=== PATIENT | female | born 1995 | race American Indian/Alaskan Native ===

== ENCOUNTER 2020-08-29 15:34 | Emergency (ER) | payer OTHER ==
[2020-08-29 18:44] LABS: HCG Qualitative,Urine Positive (Negative)
[2020-08-29 18:51] LABS: Bacteria,Urine 1+ /HPF (Negative); Bilirubin,Urine NEG (Negative); Blood,Urine NEG (Negative); Color,Urine Yellow (Yellow); Protein,Urine <15 mg/dL mg/dL (Negative); Urobilinogen,Urine < 2.0 mg/dL (<2.0)
[2020-08-29] MEDS ORDERED: ACETAMINOPHEN 500 MG TAB PO ONE (21:24)
[2020-08-29] MEDS ORDERED: PROMETHAZINE 25 MG TAB PO ONE (21:24)
[2020-08-29 23:05] LABS: Basophils % (Auto) 0.3 % (0.0-1.8); Eosinophils # (Auto) 0.1 K/mm3 (0.0-0.4); Eosinophils % (Auto) 1.1 % (0.0-4.3); Hemoglobin 12.7 gm/dl (10.1-14.3); Lymphocytes # (Auto) 2.6 K/mm3 (1.2-5.4); Lymphocytes % (Auto) 35.4 % (13.4-35.0); Mean Corpuscular HGB Conc 33 % (30-34); Mean Corpuscular Volume 85 fl (79-97); Monocytes # (Auto) 0.8 K/mm3 (0.0-0.8); Platelet Count 211 K/mm3 (140-440); Red Blood Count 4.48 M/mm3 (3.65-5.03); Red Cell Distribution Width 14.3 % (13.2-15.2)
--- NOTE | 2020-08-29 23:12 | Ultrasound Report ---
ULTRASOUND OBSTETRIC REASON FOR EXAM: abd pain/ TECHNIQUE: Transabdominal and transvaginal ultrasound was performed to evaluate a first trimester pre gnancy. COMPARISON: None available. FINDINGS: FINDINGS: The pole, yolk sac, and gestational sac are normal in appearance. [place]-rump length: 3.7 mm. This corresponds with a gestational age of 6 weeks 0 days. heart rate: 133 bpm Perigestational hemorrhage: No evidence of perigestational hemorrhage on the provided images. MATERNAL FINDINGS: The uterus demonstrates otherwise unremarkable sonographic appearance.. The right ovary measures 4 x 1.9 x 2.1 cm. There is a 2.7 cm cystic structure in the right ovary, com patible with corpus luteum cyst. Left ovary is not visualized. Cul-de-sac: There is fluid in the cul-de-sac. IMPRESSION: Single viable intrauterine . Gestational age is 6 weeks 0 days by ultrasound. Recommend clin ical screening and ultrasound follow-up in the second trimester to screen for anomalies. Nonspecific fluid in the cul-de-sac, likely physiologic. Signer Name: Stephen Fraga MD Signed: 08/29/2020 11:08 PM Workstation Name: [id number]
[2020-08-29 23:21] LABS: Alanine Aminotransferase 21 units/L (7-56); Albumin 4.2 g/dL (3.9-5); Blood Urea Nitrogen 6 mg/dL (7-17); Calcium 9.5 mg/dL (8.4-10.2); Hemolysis Index 5
[2020-08-29 23:29] LABS: BUN/Creatinine Ratio 12
[2020-08-29 23:43] VITALS: BP 111/63
--- NOTE | 2020-08-29 23:45 | Emergency Department Report ---
ED Female HPI - General Chief complaint: Abdominal Pain Stated complaint: IN PAINS Source: patient Mode of arrival: Ambulatory Limitations: No Limitations - History of Present Illness Initial comments: Patient is a A0 25-year-old -[place] female with no past medical history and who is approximately 6 weeks gestation presents to the ED with complaint of acute onset persistent pelvic pain for the last 2 days, worse in the last 12 hours. Patient states that her LMP was July and that she had a positive home test 2 days ago. Patient states that the pain in her pelvic area got worse in the last 8 hours. Patient denies vaginal bleeding, vaginal discharge, dysuria, urinary frequency and urgency, low back pain, chest pain, shortness of breath, diarrhea, nausea and vomiting, fever and chills or headache. MD Complaint: pelvic pain (Suprapubic pressure) -: Sudden, days(s) (2) Location: suprapubic Radiation: non-radiating Severity: moderate Severity scale (0 -10): 6 Quality: cramping, sharp Consistency: intermittent Improves with: none Worsens with: none Are you Now?: Yes (Positive home test) Last Menstrual Period: 07/19/20 EDC: 04/25/21 Associated Symptoms: denies other symptoms, abdominal pain (Suprapubic pain). denies: vaginal discharge, vaginal bleeding, nausea/vomiting, fever/chills, headaches, loss of appetite, dysuria, hematuria, rash, seizure, shortness of breath, syncope, weakness - Related Data Sexually active: Yes : 2 Para: 1 A: 0 Previous Rx's Medication Instructions Recorded Last Taken Type Acetaminophen [Tylenol] 500 mg PO Q6HR PRN #30 tablet 08/29/20 Unknown Rx Promethazine [Phenergan] 25 mg PO Q6HR PRN #30 tab 08/29/20 Unknown Rx cephALEXin [Keflex] 500 mg PO Q8HR #30 cap 08/29/20 Unknown Rx Allergies Allergy/AdvReac Type Severity Reaction Status Date / Time No Known Allergies Allergy Unverified 08/29/20 17:13 ED Review of Systems ROS: Stated complaint: IN PAINS Other details as noted in HPI Constitutional: denies: chills, fever Eyes: denies: eye pain, eye discharge, vision change ENT: denies: ear pain, throat pain Respiratory: denies: cough, shortness of breath, wheezing Cardiovascular: denies: chest pain, palpitations Endocrine: no symptoms reported Gastrointestinal: abdominal pain (Suprapubic pain). denies: nausea, vomiting, diarrhea Genitourinary: denies: urgency, dysuria, discharge Musculoskeletal: denies: back pain, joint swelling, arthralgia Skin: denies: rash, lesions Neurological: denies: headache, weakness, paresthesias Psychiatric: denies: anxiety, depression Hematological/Lymphatic: denies: easy bleeding, easy bruising ED Past Medical Hx - Past Medical History Previous Medical History?: No - Surgical History Past Surgical History?: No - Social History Smoking Status: Never Smoker - Medications Home Medications: Home Medications Medication Instructions Recorded Confirmed Last Taken Type Acetaminophen [Tylenol] 500 mg PO Q6HR PRN #30 tablet 08/29/20 Unknown Rx Promethazine [Phenergan] 25 mg PO Q6HR PRN #30 tab 08/29/20 Unknown Rx cephALEXin [Keflex] 500 mg PO Q8HR #30 cap 08/29/20 Unknown Rx ED Physical Exam - General Limitations: No Limitations General appearance: alert, in no apparent distress - Head Head exam: Present: atraumatic, normocephalic, normal inspection - Eye Eye exam: Present: normal appearance, PERRL, EOMI Pupils: Present: normal accommodation - ENT ENT exam: Present: normal exam, normal orophraynx, mucous membranes moist, TM's normal bilaterally, normal external ear exam - Neck Neck exam: Present: normal inspection, full ROM - Respiratory Respiratory exam: Present: normal lung sounds bilaterally. Absent: respiratory distress, wheezes, rales, rhonchi, chest wall tenderness, accessory muscle use, decreased breath sounds, prolonged expiratory - Cardiovascular Cardiovascular Exam: Present: regular rate, normal rhythm, normal heart sounds. Absent: systolic murmur, diastolic murmur, rubs, gallop - GI/Abdominal GI/Abdominal exam: Present: soft, normal bowel sounds. Absent: tenderness, guarding, rebound, hyperactive bowel sounds, hypoactive bowel sounds, organomegaly - Extremities Exam Extremities exam: Present: normal inspection, full ROM, normal capillary refill - Back Exam Back exam: Present: normal inspection, full ROM. Absent: tenderness, CVA tenderness (R), CVA tenderness (L), muscle spasm, paraspinal tenderness - Neurological Exam Neurological exam: Present: alert, oriented X3, CN II-XII intact, normal gait, reflexes normal - Psychiatric Psychiatric exam: Present: normal affect, normal mood - Skin Skin exam: Present: warm, dry, intact, normal color. Absent: rash ED Course Vital Signs 08/29/20 17:12 Temperature 98.1 F Pulse Rate 81 Respiratory 18 Rate Blood Pressure 111/63 O2 Sat by Pulse 100 Oximetry ED Medical Decision Making - Lab Data Result diagrams: 08/29/20 22:25 08/29/20 22:25 - Radiology Data Radiology results: report reviewed, image reviewed [facility] [address] [place] [address] Ultrasound Report Signed Patient: SHIRA GARCIA MR#: [id number] 51 : 1995 Acct:[id number] Age/Sex: 25 / F ADM Date: 08/29/20 Loc: ED Attending Dr: Ordering Physician: ALTON NIETO Date of Service: 08/29/20 Procedure(s): US OB transvaginal Accession Number(s): [id number] cc: ALTON NIETO ULTRASOUND OBSTETRIC REASON FOR EXAM: abd pain/ TECHNIQUE: Transabdominal and transvaginal ultrasound was performed to evaluate a first trimester . COMPARISON: None available. FINDINGS: FINDINGS: The pole, yolk sac, and gestational sac are normal in appearance. [place]-rump length: 3.7 mm. This corresponds with a gestational age of 6 weeks 0 days. heart rate: 133 bpm Perigestational hemorrhage: No evidence of perigestational hemorrhage on the provided images. MATERNAL FINDINGS: The uterus demonstrates otherwise unremarkable sonographic appearance.. The right ovary measures 4 x 1.9 x 2.1 cm. There is a 2.7 cm cystic structure in the right ovary, compatible with corpus luteum cyst. Left ovary is not visualized. Cul-de-sac: There is fluid in the cul-de-sac. IMPRESSION: Single viable intrauterine . Gestational age is 6 weeks 0 days by ultrasound. Recommend clinical screening and ultrasound follow-up in the second trimester to screen for anomalies. Nonspecific fluid in the cul-de-sac, likely physiologic. Signer Name: Rosie Fraga MD Signed: 08/29/2020 11:08 PM Workstation Name: [id number] Transcribed By: PARISA Dictated By: ROSIE FRAGA MD Electronically Authenticated By: ROSIE FRAGA MD Signed Date/Time: 08/29/202307 DD/ 04 TD/TT: - Medical Decision Making This is a A0 25-year-old -[place] female with no past medical history and who is approximately 6 weeks gestation presents to the ED with complaint of acute onset persistent pelvic pain for the last 2 days, worse in the last 12 hours. Patient states that her LMP was July and that she had a positive home test 2 days ago. Patient states that the pain in her pelvic area got worse in the last 8 hours. In the ED, patient is alert and oriented x3 and is not in any distress. Patient was treated for pain in the ED with Tylenol. Lab test results were reviewed and are all nonactionable except for urinalysis that showed urinary tract infection. Transvaginal ultrasound showed a single viable intrauterine . Gestational age is 6 weeks 0 days by ultrasound. Recommend clinical screening and ultrasound follow- up in the second trimester to screen for anomalies. On reevaluation, patient's pain is well controlled medications. Patient is hemodynamically stable. Patient was discharged home on antibiotics and pain medication specifically Tylenol and was advised to follow-up with her PLANT OPERATIONS WORKER physician in 5 to 7 days for reevaluation or return to the ED immediately if symptoms get worse. - Differential Diagnosis UTI; ovarian cyst; ectopic ; constipation; STD Critical care attestation.: If time is entered above; I have spent that time in minutes in the direct care of this critically ill patient, excluding procedure time. ED Disposition Clinical Impression: Abdominal pain during in first trimester, Acute urinary tract infection Disposition: DC-01 TO HOME OR SELFCARE Is pt being admited?: No Does the pt Need Aspirin: No Condition: Stable Instructions: Abdominal Pain During , [id number], Urinary Tract Infection, Adult, [id number], Abdominal Pain (ED) Additional Instructions: All lab test results were reviewed and are all nonactionable except for urinalysis that showed significant urinary tract infection. Transvaginal u ltrasound showed a single live intrauterine with a gestational age of 6 weeks and 0 days. Therefore take pain medication as needed, specifically Tylenol and antibiotics as advised. Follow-up with your PLANT OPERATIONS WORKER physician in 5 to 7 days for reevaluation. Return to the ED immediately if symptoms get worse. Prescriptions: Acetaminophen [Tylenol] 500 mg PO Q6HR PRN #30 tablet PRN Reason: Pain , Severe (7-10) cephALEXin [Keflex] 500 mg PO Q8HR #30 cap Promethazine [Phenergan] 25 mg PO Q6HR PRN #30 tab PRN Reason: Nausea Referrals: KAITLYN JENKINS MD [Staff Physician] - 7-10 days Time of Disposition: 23:48 Print Language: HUNGARIAN
== END 2020-08-30 00:20 | disposition home or self-care (01) ==
LOC: ED 15:34
DX: O23.41 Unspecified infection of urinary tract in pregnancy, first trimester (principal); O26.891 Other specified pregnancy related conditions, first trimester; R10.9 Unspecified abdominal pain; Z3A.01 Less than 8 weeks gestation of pregnancy
CPT/HCPCS: 36415; 76817; 80053; 81001; 81025; 84702; 85025; 99284; Q0169

== ENCOUNTER 2020-10-26 14:09 | Emergency (ER) | payer SELFPAY ==
[2020-10-26 14:12] VITALS: BP 114/59
--- NOTE | 2020-10-26 17:53 | Event Note ---
ED Screening Note ED Screening Note: Patient is a 25-year-old female presents emergency with complaints of left-sided chest pain that began yesterday She describes it as intermittent sharp pain She denies any shortness of breath, cough, nausea, vomiting, diarrhea, fever, hemoptysis, pleuritic pain She states that she has had the pain before but has never seen anyone for it No past medical history or allergies to medications She states that she is currently 13 weeks This initial assessment/diagnostic orders/clinical plan/treatment(s) is/are subject to change based on patients health status, clinical progression and re- assessment by fellow clinical providers in the ED. Further treatment and workup at subsequent clinical providers discretion. Patient/guardian urged not to elope from the ED as their condition may be serious if not clinically assessed and managed. Initial orders include: Labs, x-ray, EKG
--- NOTE | 2020-10-26 18:26 | XRay Report ---
. XR chest 1V ap INDICATION / CLINICAL INFORMATION: cp. COMPARISON: None available. FINDINGS: SUPPORT DEVICES: None. HEART /PULMONARY VASCULATURE: No significant abnormality. LUNGS / PLEURA: No significant pulmonary or pleural abnormality. No pneumothorax. ADDITIONAL FINDINGS: No significant additional findings. IMPRESSION: 1. No acute findings. Signer Name: Stephen Fraga MD Signed: 10/26/2020 6:22 PM Workstation Name: [id number]
[2020-10-26 19:18] LABS: Eosinophils % (Auto) 0.3 % (0.0-4.3); Hemoglobin 12.3 gm/dl (10.1-14.3); Lymphocytes # (Auto) 1.1 K/mm3 (1.2-5.4); Monocytes # (Auto) 0.4 K/mm3 (0.0-0.8); Monocytes % (Auto) 6.5 % (0.0-7.3)
[2020-10-26 19:39] LABS: Alanine Aminotransferase 20 units/L (7-56); Albumin 3.9 g/dL (3.9-5); Blood Urea Nitrogen 5 mg/dL (7-17); Calcium 9.8 mg/dL (8.4-10.2); Hemolysis Index 20
[2020-10-26 19:57] LABS: Hematocrit 37.7 % (30.3-42.9); Mean Corpuscular HGB Conc 33 % (30-34); Mean Corpuscular Volume 84 fl (79-97); Red Blood Count 4.47 M/mm3 (3.65-5.03); Red Cell Distribution Width 13.4 % (13.2-15.2)
[2020-10-26 19:58] LABS: BUN/Creatinine Ratio 10; Platelet Count 158 K/mm3 (140-440)
--- NOTE | 2020-10-26 20:18 | Emergency Department Report ---
ED Chest Pain HPI - General Chief Complaint: Chest Pain Stated Complaint: CHEST PAIN Time Seen by Provider: 10/26/20 17:52 Source: patient Mode of arrival: Ambulatory Limitations: No Limitations - History of Present Illness Initial Comments: Patient is a 25-year-old female presents emergency with complaints of left-sided chest pain that began yesterday She describes it as intermittent sharp pain She denies any shortness of breath, cough, nausea, vomiting, diarrhea, fever, hemoptysis, pleuritic pain She states that she has had the pain before but has never seen anyone for it No past medical history or allergies to medications She states that she is currently 13 weeks - Related Data Previous Rx's Medication Instructions Recorded Last Taken Type Acetaminophen [Tylenol] 500 mg PO Q6HR PRN #30 tablet 08/29/20 Unknown Rx Promethazine [Phenergan] 25 mg PO Q6HR PRN #30 tab 08/29/20 Unknown Rx cephALEXin [Keflex] 500 mg PO Q8HR #30 cap 08/29/20 Unknown Rx Acetaminophen [Tylenol] 650 mg PO Q8HR PRN #20 capsule 10/26/20 Unknown Rx Allergies Allergy/AdvReac Type Severity Reaction Status Date / Time No Known Allergies Allergy Verified 10/26/20 14:12 Heart Score - HEART Score History: Slightly suspicious EKG: Normal Age: < 45 Risk factors: No known risk factors Troponin: < normal limit HEART Score: 0 - EKG Read Time Time EKG Completed: 00:00 (please see ekg scanned into chart) EKG Read Time: 00:00 (please see ekg scanned into chart) ED Review of Systems ROS: Stated complaint: CHEST PAIN Other details as noted in HPI Comment: All other systems reviewed and negative ED Past Medical Hx - Social History Smoking Status: Never Smoker - Medications Home Medications: Home Medications Medication Instructions Recorded Confirmed Last Taken Type Acetaminophen [Tylenol] 500 mg PO Q6HR PRN #30 tablet 08/29/20 Unknown Rx Promethazine [Phenergan] 25 mg PO Q6HR PRN #30 tab 08/29/20 Unknown Rx cephALEXin [Keflex] 500 mg PO Q8HR #30 cap 08/29/20 Unknown Rx Acetaminophen [Tylenol] 650 mg PO Q8HR PRN #20 capsule 10/26/20 Unknown Rx ED Physical Exam - General Limitations: No Limitations General appearance: alert, in no apparent distress - Head Head exam: Present: atraumatic, normocephalic - Eye Eye exam: Present: normal appearance - ENT ENT exam: Present: mucous membranes moist - Respiratory Respiratory exam: Present: normal lung sounds bilaterally. Absent: respiratory distress, wheezes, rales, rhonchi, stridor, chest wall tenderness, accessory muscle use, decreased breath sounds, prolonged expiratory - Cardiovascular Cardiovascular Exam: Present: regular rate, normal rhythm, normal heart sounds. Absent: systolic murmur, diastolic murmur, rubs, gallop - Neurological Exam Neurological exam: Present: alert, oriented X3 - Psychiatric Psychiatric exam: Present: normal affect, normal mood - Skin Skin exam: Present: warm, dry, intact ED Course Vital Signs 10/26/20 10/26/20 14:10 20:39 Temperature 98.4 F Pulse Rate 93 H 82 Respiratory 20 Rate Blood Pressure 114/59 [Left] O2 Sat by Pulse 100 100 Oximetry ARDEN score - Arden Score Age > 65: (0) No Aspirin use within the Past 7 Days: (0) No 3 or more CAD Risk Factors: (0) No 2 or more Angina events in past 24 hrs: (0) No Known CAD with more than 50% Stenosis: (0) No Elevated Cardiac Markers: (0) No ST Deviation Greater than 0.5mm: (0) No ARDEN Score: 0 ED Medical Decision Making - Lab Data Result diagrams: 10/26/20 18:20 10/26/20 18:20 Lab Results 10/26/20 10/26/20 10/26/20 Range/Units 18:20 18:20 18:20 WBC 6.6 (4.5-11.0) K/mm3 RBC 4.47 (3.65-5.03) M/mm3 Hgb 12.3 (10.1-14.3) gm/dl Hct 37.7 (30.3-42.9) % MCV 84 (79-97) fl MCH 28 (28-32) pg MCHC 33 (30-34) % RDW 13.4 (13.2-15.2) % Plt Count 158 (140-440) K/mm3 Lymph % (Auto) 16.0 (13.4-35.0) % Bates % (Auto) 6.5 (0.0-7.3) % Eos % (Auto) 0.3 (0.0-4.3) % Baso % (Auto) 0.0 (0.0-1.8) % Lymph # (Auto) 1.1 L (1.2-5.4) K/mm3 [place] # (Auto) 0.4 (0.0-0.8) K/mm3 Eos # (Auto) 0.0 (0.0-0.4) K/mm3 Baso # (Auto) 0.0 (0.0-0.1) K/mm3 Seg Neutrophils % 77.2 H (40.0-70.0) % Seg Neutrophils # 5.1 (1.8-7.7) K/mm3 Sodium 133 L (137-145) mmol/L Potassium 3.6 (3.6-5.0) mmol/L Chloride 101.5 (98-107) mmol/L Carbon Dioxide 22 (22-30) mmol/L Anion Gap 13 mmol/L BUN 5 L (7-17) mg/dL Creatinine 0.5 L (0.6-1.2) mg/dL Estimated GFR > 60 ml/min BUN/Creatinine Ratio 10 % Glucose 136 H (65-100) mg/dL Calcium 9.8 (8.4-10.2) mg/dL Total Bilirubin 0.30 (0.1-1.2) mg/dL AST 22 (5-40) units/L ALT 20 (7-56) units/L Alkaline Phosphatase 62 (35-129) units/L Troponin T < 0.010 (0.00-0.029) ng/mL NT-Pro-B Natriuret Pep 86.42 (0-450) pg/mL Total Protein 7.5 (6.3-8.2) g/dL Albumin 3.9 (3.9-5) g/dL Albumin/Globulin Ratio 1.1 % Vital Signs 10/26/20 10/26/20 14:10 20:39 Temperature 98.4 F Pulse Rate 93 H 82 Respiratory 20 Rate Blood Pressure 114/59 [Left] O2 Sat by Pulse 100 100 Oximetry - EKG Data EKG shows normal: sinus rhythm, axis, intervals, QRS complexes, ST-T waves Rate: normal - Radiology Data Radiology results: report reviewed Ordering Physician: ED GUERITA, Date of Service: 10/26/20 Procedure(s): XR chest 1V ap Accession Number(s): [id number] cc: ED DOC, Fluoro Time In Minutes: . XR chest 1V ap INDICATION / CLINICAL INFORMATION: cp. COMPARISON: None available. FINDINGS: SUPPORT DEVICES: None. HEART /PULMONARY VASCULATURE: No significant abnormality. LUNGS / PLEURA: No significant pulmonary or pleural abnormality. No pneumothorax. ADDITIONAL FINDINGS: No significant additional findings. IMPRESSION: 1. No acute findings. Signer Name: Rosie Muniz MD Signed: 10/26/2020 6:22 PM Workstation Name: [id number] Transcribed By: PARISA Dictated By: ROSIE MUNIZ MD Electronically Authenticated By: ROSIE MUNIZ MD Signed Date/Time: 10/26/201821 DD/ 21 TD/TT: - Medical Decision Making Patient is a 25-year-old female presents emergency with complaints of left-sided chest pain that began yesterday She describes it as intermittent sharp pain She denies any shortness of breath, cough, nausea, vomiting, diarrhea, fever, hemoptysis, pleuritic pain She states that she has had the pain before but has never seen anyone for it No past medical history or allergies to medications She states that she is currently 13 weeks Vitals are normal. Patient has no tachycardia, no tachypnea, no hypoxia, no hypotension. No abnormality on physical examination as documented in chart. EKG is within normal limits. Chest x-ray with no acute process. Labs are stable. Troponin is negative. BNP is normal. PERC criteria negative for PE, PE unlikely. Heart score is zero, ARDEN score 0, low risk for cardiac event, do not suspect ACS. Advised patient Please take medication as prescribed. Follow- up with a primary care doctor. Follow-up with a flattening machine operator. Return to emergency room immediately for any new or worsening symptoms. Critical care attestation.: If time is entered above; I have spent that time in minutes in the direct care of this critically ill patient, excluding procedure time. ED Disposition Clinical Impression: Chest pain Qualifiers: Chest pain type: unspecified Qualified Code(s): R07.9 - Chest pain, unspecified Disposition: HOME / SELF CARE / HOMELESS Is pt being admited?: No Does the pt Need Aspirin: No Condition: Stable Instructions: Nonspecific Chest Pain, Adult Additional Instructions: Please take medication as prescribed. Follow-up with a primary care doctor. Follow-up with a flattening machine operator. Return to emergency room immediately for any new or worsening symptoms. [facility] in [place], [place] Address: [address] [place], [place] [address]y [address], [place] [address] Prescriptions: Acetaminophen [Tylenol] 650 mg PO Q8HR PRN #20 capsule PRN Reason: pain Referrals: TOÑO LUNA MD [Staff Physician] - 2-3 Days [facility] [Provider Group] - 2-3 Days Time of Disposition: 20:16 Print Language: KAZAKH
--- NOTE | 2020-10-28 09:44 | Electrocardiograph Report ---
[facility] Test Date: 2020-10-26 Test Time: 14:18:41 Pat Name: SHIRA GARCIA Department: Room: Gender: F Geophysical Engineer: TV : 1995 Requested By: MARTHA GARCIA Order Number: [id number] Reading MD: Jori Buckley Measurements Intervals [place] Rate: 98 P: 69 WV: 138 QRS: 2 QRSD: 82 T: 25 QT: 354 QTc: 453 Interpretive Statements Sinus rhythm No previous ECG available for comparison Electronically Signed On 10-28-2020 9:44:32 EDT by Jori Buckley
== END 2020-10-26 21:35 | disposition home or self-care (01) ==
LOC: ED 14:09
DX: R07.89 Other chest pain (principal); Z79.899 Other long term (current) drug therapy
CPT/HCPCS: 36415; 71045; 80053; 83880; 84484; 85025; 93005

== ENCOUNTER 2021-01-14 09:52 | Outpatient (CLI) | payer OTHER ==
[2021-01-14] MEDS ORDERED: LACTATED RINGERS 500 ML IV ONE (11:00)
[2021-01-14 11:47] VITALS: BP 98/56
== END 2021-01-14 11:47 | disposition home or self-care (01) ==
LOC: TRG 09:52 → APU 09:53 → TRG 11:47
PROVIDERS: ATTEND Obstetrics & Gynecology
DX: Z34.92 Encounter for supervision of normal pregnancy, unspecified, second trimester (principal); Z3A.25 25 weeks gestation of pregnancy
CPT/HCPCS: 59025

== ENCOUNTER 2021-03-01 15:11 | Outpatient (CLI) | payer SELFPAY ==
[2021-03-01] MEDS ORDERED: LACTATED RINGERS 500 ML IV ONE (17:00)
[2021-03-01 17:41] LABS: Bacteria,Urine 2+ /HPF (Negative); Bilirubin,Urine NEG (Negative); Blood,Urine NEG (Negative); Color,Urine Yellow (Yellow); Protein,Urine <15 mg/dL mg/dL (Negative); Urobilinogen,Urine < 2.0 mg/dL (<2.0)
--- NOTE | 2021-03-01 20:04 | Ultrasound Report ---
ULTRASOUND BIOPHYSICAL PROFILE INDICATION / CLINICAL INFORMATION: R/O ABRUPTION, BPP, FULL DEMETRIO. COMPARISON: None available. FINDINGS: BREATHING MOVEMENT = 2 GROSS BODY MOVEMENT = 2 TONE = 2 QUALITATIVE AMNIOTIC FLUID VOLUME = 2 TOTAL BIOPHYSICAL SCORE = 8/8 AMNIOTIC FLUID INDEX (cm) = 7.0 PRESENTATION: Cephalic. HEART RATE (beats per minute): 149-152 Additional findings: Anterior placenta. No placental lifting or retroplacental hematoma. IMPRESSION: 1. Single live intrauterine . biophysical profile = 8/8 2. DEMETRIO measures 7.0 cm, which is at the lower limits of normal. 3. No evidence of placental abruption. Signer Name: Stephen Fraga MD Signed: 03/01/2021 8:00 PM Workstation Name: [id number]
[2021-03-01 20:28] VITALS: BP 93/52
== END 2021-03-01 20:51 | disposition home or self-care (01) ==
LOC: TRG 15:11 → APU 15:14 → TRG 20:51
PROVIDERS: ATTEND Student in an Organized Health Care Education/Training Program
DX: O47.03 False labor before 37 completed weeks of gestation, third trimester (principal); Z3A.32 32 weeks gestation of pregnancy
CPT/HCPCS: 76815; 76819; 81001; 85460; J7120